=== PATIENT | male | born 1980 | race African-American/Black ===

== ENCOUNTER 2019-02-20 23:42 | Observation (INO) ==
[2019-02-21] MEDS ORDERED: SODIUM CHLORIDE 0.9% 1000ML 1,000 ML IV SCH (00:15)
[2019-02-21 00:33] LABS: Hematocrit (blood only) 45.9 % (42-52); Hemoglobin 16.4 g/dL (14.0-18.0); Mean Corpuscular Hemoglobin 33.9 pg (25-34); Mean Corpuscular Hgb Conc 35.7 g/dL (32-36); Mean Corpuscular Volume 94.8 fL (80-100); Mean Platelet Volume 10.1 fL (7.4-10.4); Platelet Count 225 K/uL (130-400); RDW Standard Deviation 48.7 fL (36.4-46.3); Red Blood Count 4.84 M/uL (4.7-6.1); White Blood Count 12.14 K/uL (4.8-10.8)
[2019-02-21 00:45] LABS: Partial Thromboplastin Ratio 1.1; Partial Thromboplastin Time 29.1 Seconds (21.0-31.0); Prothrombin Time 9.9 Seconds (9.0-12.0)
[2019-02-21 00:52] LABS: BUN Creatinine Ratio 12.9 (10-20); Calcium 9.4 mg/dl (8.5-10.1); Creatinine Clr Calc Pharmacy 105.1 ml/min; Est GFR (African American) 93.7; Est GFR (Non-African American) 80.9; Magnesium 2.2 mg/dl (1.8-2.4)
[2019-02-21 00:54] LABS: Basophils # (auto) 0.02 K/uL (0-0.2); Basophils % (auto) 0.2 %; Eosinophils # (auto) 0.16 K/uL (0-0.5); Eosinophils % (auto) 1.3 %; Immature Granulocytes # (auto) 0.02 K/uL (0.00-0.02); Immature Granulocytes % (auto) 0.2 %; Lymphocytes # (auto) 5.05 K/uL (1.2-3.4); Lymphocytes % (auto) 41.6 %; Monocytes # (auto) 0.93 K/uL (0.11-0.59); Monocytes % (auto) 7.7 %; Neutrophils # (auto) 5.96 K/uL (1.4-6.5); RBC Morphology Unremarkable
[2019-02-21 00:55] LABS: Albumin Globulin Ratio 0.9 (0.9-2); Bilirubin,Total 0.2 mg/dl (0.2-1); Globulin 4.3 gm/dl (2.5-4.0); Total Protein 8.3 gm/dl (6.4-8.2)
[2019-02-21] MEDS ORDERED: fentaNYL citrate 100 MCG/2 ML VIAL ONE (01:16)
[2019-02-21] MEDS ORDERED: PROPOFOL IV EMULSION 10 MG/ML 20 ML VIAL IV ONE (01:16)
[2019-02-21] MEDS ORDERED: LIDOCAINE HCL 2% 2 ML VIAL/AMP(20MG/ML) INFIL ONE (01:16)
--- NOTE | 2019-02-21 01:23 | History & Physical Report ---
Date of Service February 21, 2019 Assessment & Plan (1) Penile trauma: Penile injury with concern for penile fracture and high suspicion for urethral injury with blood at the meatus. Discussed need for urgent exploration and repair. Risks and benefits discussed at length for procedure. These include bleeding, infection, injury to surrounding tissues or organs, and risks associated with anesthesia. Patient states understanding and agrees to proceed. Will sign consent. 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 Understands and wishes to proceed with Penile exploration and cystoscopy. Present on Admission?: Yes (2) Urethral trauma: As above. Present on Admission?: Yes History of Present Illness Primary Care Provider: NO PCP Patient with sudden onset of severe pain and blood per penis after injury during intercourse. Severe swelling and discomfort up to groin and pelvis with immediate swelling. Unsure if completely lost erection. Had large amount of blood in condom. Seen in ER. Urology consult due to concern of trauma. High suspicion of urethral injury with penile fracture. Allergies Allergy/AdvReac Type Severity Reaction Status Date / Time No Known Allergies Allergy Verified 02/21/19 00:12 Home Medications Home Medications Medication Instructions Recorded Confirmed Type atorvastatin 0 mg PO DAILY 02/21/19 02/21/19 History lisinopril 0 mg PO DAILY 02/21/19 02/21/19 History Past Med/Surg History Medical History No chronic problems Family History Other No significant family history Social History Preferred Language: Estonian Feels Safe at Home: Yes Smoking Status: Current every day smoker Review of Systems All systems reviewed & are unremarkable except as noted in HPI & below Physical Exam Physical Exam: General: Alert and oriented x 3 in no acute distress. Patient is well nourished and well kept. HEENT: Normocephalic Atraumatic. Inspection normal. Cranial Nerves 2-12 Grossly intact. Nares are clear. Neck is supple. Normal inspection of face. Normal inspection of neck. Neurologic: No deficits on inspection. Baseline for motor function and sensory. Psychologic: Normal affect. Respiratory: Nonlabored. No use of accessory muscles. No tachypnea or dyspnea. Cardiovascular: No tachycardia Skin: [place] and Dry. No rashes or visible lesions. Extremities: Moving without issues. No motor deficits on inspection Lymphatics: No edema Abdomen: Soft Non-distended. No acites. No rebound or guarding. Genitourinary: Large swelling/hematoma at base ventral penis with edema tracking up along ventral penis and blood at meatus. Results & Data Vital Signs (Past 12 Hours) Vital Signs Temp Pulse Pulse Resp BP BP Pulse Ox 02/21/19 01:08 69 16 140/99 99 02/21/19 00:56 69 16 143/118 H 98 02/21/19 00:43 98 02/20/19 23:50 36.6 C 100 H 20 162/97 H 96
--- NOTE | 2019-02-21 01:24 | Anesthesiology Consultation ---
Date of Service February 21, 2019 Assessment & Plan (1) Encounter for pre-operative examination: Chart Review Chart Review: Acceptable Risk for Surgery Consults Requested none ASA [id number] Proposed Anesthesia Anesthesia Type: General Risk / Benefits Reviewed With: PT / POA / Parent / Guardian, Accepts Plan and Informed Consent Obtained History Surgery Operation Date: 02/21/19 01:00 Proposed Procedures p Penile Exploration - Artie Bose II, DO Height/Weight Height: 5 ft 9 in Weight: 107.8 kg Allergies Allergy/AdvReac Type Severity Reaction Status Date / Time No Known Allergies Allergy Verified 02/21/19 00:12 Medications Home Medications Medication Instructions Recorded Confirmed Last Taken atorvastatin 0 mg PO DAILY 02/21/19 02/21/19 02/20/19 lisinopril 0 mg PO DAILY 02/21/19 02/21/19 02/20/19 Active Medications Generic Name Dose Route Start Last Admin Trade Name Freq PRN Reason Stop Dose Admin Sodium Chloride 1,000 mls @ 125 mls/hr 02/21/19 00:15 02/21/19 01:14 Nss 1000ml IV 02/21/19 08:14 125 mls/hr .Q8H FAITH Administration NPO Date Last Intake of Fluids: 02/20/19 Time Last Intake of Fluids: 22:00 Last Intake of Fluids Comment: [place] Date Last Intake of Solids: 02/20/19 Time Last Intake of Solids: 20:00 Past Medical History Medical History Glaucoma HTN (hypertension) Hyperlipidemia No chronic problems Obesity Exercise / Class Metabolic Activity II 4-5 Yardwork/Stairs/Walk up hill Past Family History Family History Other No significant family history Past Anesthesia History No Hx of Anesthesia Complications and No Family Hx of Anesthesia Complications History of PONV No Hx of PONV and No Hx of Motion Sickness Social History Smoking Status: Current every day smoker Physical Exam Vital Signs Last Vital Signs Temp 97.9 F 02/20/19 23:50 Pulse 69 02/21/19 01:08 Resp 16 02/21/19 01:08 BP 140/99 02/21/19 01:08 Pulse Ox 99 02/21/19 01:08 ENMT Mouth: no dentition abnormality Thyromental Distance: > or= 3.5 Finger Breadths Mallampati Class: II Neck normal visual inspection Respiratory normal respiratory effort Auscultation: lungs clear to auscultation bilaterally Cardiovascular Rate/Rhythm: regular rate and regular rhythm Testing Laboratory Results 02/21/19 00:13 02/21/19 00:13 PT 9.9 Seconds (9.0-12.0) 02/21/19 00:13 INR 1.0 (0.9-1.1) 02/21/19 00:13 APTT 29.1 Seconds (21.0-31.0) 02/21/19 00:13 Electrocardiogram Date: 02/21/19 Normal sinus rhythm, rate 96 bpm Nonspecific T wave abnormality Abnormal ECG No previous ECGs available
[2019-02-21] MEDS ORDERED: ONDANSETRON INJ 2 MG/ML 2 ML VIAL IV PRN ×2 (01:33→04:37)
[2019-02-21] MEDS ORDERED: ePHEDrine sulfate 50 MG/ML AMP IV PRN (01:33)
[2019-02-21] MEDS ORDERED: fentaNYL citrate 100 MCG/2 ML VIAL IV PRN (01:33)
[2019-02-21] MEDS ORDERED: ATROPINE SULFATE 0.1 MG/ML 10ML SYR IV PRN (01:33)
[2019-02-21] MEDS ORDERED: LIDOCAINE/EPINEPHRINE 1% 20 ML VIAL ONE (01:45)
[2019-02-21] MEDS ORDERED: BUPIVACAINE 0.25% 30 ML VIAL ONE (01:45)
[2019-02-21] MEDS ORDERED: ROCURONIUM BROMIDE 10 MG/ML 5 ML VIAL ONE (02:12)
[2019-02-21] MEDS ORDERED: CEFAZOLIN 250 MG/ML 1 GM VIAL ONE (02:12)
[2019-02-21] MEDS ORDERED: SUCCINYLCHOLINE CHLORIDE 20 MG/ML 10 ML VIAL ONE (02:12)
[2019-02-21] MEDS ORDERED: PHENYLEPHRINE 100MCG/ML 5ML SYR ONE (02:21)
--- NOTE | 2019-02-21 03:48 | Anesthesiology Progress Note ---
Date of Service February 21, 2019 Anesthesia Post Procedure Vital Signs Vital Signs: Temp Pulse Pulse Resp BP BP Pulse Ox 02/21/19 01:08 69 16 140/99 99 02/21/19 00:56 69 16 143/118 H 98 02/21/19 00:43 98 02/20/19 23:50 97.9 F 100 H 20 162/97 H 96 Pain Intensity Penis: Pain Intensity: 6 Transfer of Care Handoff Completed per policy Notes Mental Status: alert / awake / arousable and participated in evaluation Patient Amnestic to Procedure: Yes Nausea / Vomiting: adequately controlled Pain: adequately controlled Airway Patency, RR, SpO2: stable & adequate BP & HR: stable & adequate Hydration State: stable & adequate Anesthetic Complications: no major complications apparent and Pt Satisfied with anesthetic care
--- NOTE | 2019-02-21 03:51 | Operative Report ---
Post Operative Report Pre & Post Diagnosis Operation Date: 02/21/19 01:00 Pre-Op Diagnosis: Penile trauma Post-Op Diagnosis: Penile fracture with urethral injury Procedure Operation Date: 02/21/19 01:00 Actual Procedures p Cytoscopy with difficult canales placement; Penile Exploration with repair of urethral and corpora spongiosum - Artie Bose II, DO Surgeon Artie Bose, II, DO Fly Worker None Estimated Blood Loss 10 Findings Consistent with Post-Op Diagnosis Urethral injury at mid urethra with large penile hematoma. Wire and canales passed through cystoscope. Exploration found rupture of spongiosum and 1.1 cm injury of the urethra. Specimens None Drains 18 Fr Washoe tip Anesthesia Type General Complications none Disposition Disposition: Recovery Room Indications Penile trauma with blood at meatus. Urgent/Emergent exploration with presumed urethral injury. Risks and benefits discussed at length. Description of Procedure Patient was consented and brought back to the operating room. Patient was placed under anesthesia in the supine position. Patient was prepped and draped in the regular sterile fashion. A time out was completed. Correct patient identified. A penile block was completed at the base of the penis. A flexible cystoscopy was placed into the urethra. It was slowly advanced. A large injury was discovered in the mid pendulous urethra. The lumen was visable and with a wire the scope was able to advaned past. No further injury was discovered proximal to this area. The wire was left in place and an 18 Fr Washoe tip was placed. This was set to drainage and then clamped. The foreskin was assessed and a marking pen was used to anh the area. A scalpel was used to make the incision along the circumcision scar. Care was taken to monitor the major important landmarks. A large hematoma was noted ventral with minimal blood or hematoma laterally and almost no blood tracking dorsally. The penile skin was degloved to expose the tissues. A large amount of hematoma was encountered in the mid shaft ventrally. This was flushed away. A large defect was found in the corpus spongiosum with exposed canales catheter. The area was flushed. The mucosal edges were approximated with a 4-0 PDS. A second layer was then sutured with the 4-0 PDS. The spongiosum defect was then closed with a 3-0 PDS suture. Tissue over top of the closure was then used to cover the area utilizing a 3-0 Vicryl suture. The rest of the ventral penis was inspected. no further areas of concern or notable injury. Both corpus cavernosum bodies were noted to be clear of any injury. Some smaller subcutanous veins were cauterized. No further bleeding was noted. The hematoma appeared to be caused by the large corpus spongiosum injury. The tissue below the skin was then approximated using a 3-0 vicryl. The skin edges were assessed. The 6 and 12 oclock positions were then sutured with interrupted horizontal mattress 2-0 vicryl suture. The skin edges were then approximated circumferentially. The ventral portion was closed in an interrupted fashion with the dorsal and lateral skin closed with a running stitch. The area was assessed and good approximation was noted. No bleeding or other issues. No masses or other areas of concern. Glue was placed on the incision. This was then bandaged and a layered wrap placed. A elastic bandage was then wrapped over top to allow some light compression. The patient was cleaned, aroused from anesthesia, and transferred to the pacu in stable condition having tolerated the procedure well with no complications. I was present and participated in all aspects of the procedure. The patient will maintain the catheter likely for multiple weeks to allow healing of the area. Will monitor hematoma and follow on floor as an observation patient. I attest to the content of the Intraoperative Record and any orders documented therein. Any exceptions are noted below.
--- NOTE | 2019-02-21 03:52 | Emergency Department Note ---
Entered by Jordon Gomez acting as a scribe for History of Present Illness General Chief complaint: Penile Discharge Stated complaint: PENIS DISCHARGE Time Seen by Provider: 02/20/19 23:58 Source: patient History of Present Illness Onset (ago): hour(s) 1 Location: genitals (penis) Pain Consistency: + constant Maximum Pain Intensity: 6 Quality: + other (bleeding) Associated symptoms: + other (Positive for penile swelling and penile pain.) The patient is a 38 year old male who presents to the emergency department with complaints of constant penile bleeding beginning an hour ago. The patient states that he was having sex an hour ago. He notes that while he was having sex, he jammed his erect penis, causing it to bend. He reports that he then filled the condom up with blood. The patient states that his penis is now swollen and he notes that he is having pain. He notes that he took male enhancing products earlier today. 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 and A total of 10 systems reviewed and were otherwise negative Physical Exam Vital Signs Vital Signs - 24 hr 02/20/19 23:50 02/21/19 00:43 02/21/19 00:56 Temperature 36.6 C Temperature Source Oral Sepsis Recent Fever Within 48 Hours No Sepsis New/Unexplained Change in Mental Status No Sepsis Action Taken by Nursing No Action Required Pulse Rate 100 H Pulse Rate [Apical] Pulse Rate [Right Finger] 69 Pulse Rhythm [Right Finger] Regular Pulse Strength [Right Finger] Normal Respiratory Rate 20 16 Respiratory Effort / Characteristics Non-Labored Respiratory Depth Normal Normal Respiratory Pattern Blood Pressure 162/97 H Blood Pressure [Right Arm] 143/118 H Blood Pressure Mean 118 Blood Pressure Mean [Right Arm] 126 Blood Pressure Position [Right Arm] Lying Pulse Oximetry 96 98 98 Oxygen Delivery Method Room Air Room Air Oxygen Flow Rate 02/21/19 01:08 02/21/19 03:38 02/21/19 03:50 Temperature 36.3 C L Temperature Source Oral Sepsis Recent Fever Within 48 Hours Sepsis New/Unexplained Change in Mental Status Sepsis Action Taken by Nursing Pulse Rate 69 Pulse Rate [Apical] 98 H 96 H Pulse Rate [Right Finger] Pulse Rhythm [Right Finger] Pulse Strength [Right Finger] Respiratory Rate 16 18 20 Respiratory Effort / Characteristics Non-Labored Respiratory Depth Normal Respiratory Pattern Regular Blood Pressure 140/99 Blood Pressure [Right Arm] 130/98 145/93 H Blood Pressure Mean Blood Pressure Mean [Right Arm] 108 110 Blood Pressure Position [Right Arm] Lying Pulse Oximetry 99 91 91 Oxygen Delivery Method Room Air Room Air Nasal Cannula Oxygen Flow Rate 2 02/21/19 04:00 02/21/19 04:10 Temperature Temperature Source Sepsis Recent Fever Within 48 Hours Sepsis New/Unexplained Change in Mental Status Sepsis Action Taken by Nursing Pulse Rate Pulse Rate [Apical] 92 H 94 H Pulse Rate [Right Finger] Pulse Rhythm [Right Finger] Pulse Strength [Right Finger] Respiratory Rate 18 18 Respiratory Effort / Characteristics Non-Labored Spontaneous Non-Labored Spontaneous Respiratory Depth Normal Normal Respiratory Pattern Regular Regular Blood Pressure Blood Pressure [Right Arm] 126/97 129/91 Blood Pressure Mean Blood Pressure Mean [Right Arm] 106 103 Blood Pressure Position [Right Arm] Pulse Oximetry 94 94 Oxygen Delivery Method Nasal Cannula Nasal Cannula Oxygen Flow Rate 2 2 Vital signs reviewed. General: Well-appearing male, in no significant distress. HEENT: No scleral icterus, PERRLA, neck supple. Atraumatic. Cardiovascular: Regular rate and rhythm, no extra sounds. Pulmonary: Clear to auscultation bilaterally, normal work of breathing. Abdomen: Soft, nontender, nondistended, positive bowel sounds. : Circumcised, swollen shaft/base of penis with minimal dark blood at the urethral meatus, hematoma visualized with positive tenderness along the shaft. Musculoskeletal: Atraumatic, no peripheral edema. Neurologic: Patient awake alert and oriented x 3 Skin: Warm, dry, no rash Course 0000: The patient was evaluated in room A3. A complete history and physical exam was performed. 0029: Upon reevaluation, the patient is stable. I discussed the findings and the treatment plan with the patient. He expresses agreement and understanding. I spoke with Dr. Juice Vital UrologDHRUV molina. The patient will be taken to the OR for further management. Consultations Consultation #1: I spoke with DHRUV Tucker. The patient will be taken to the OR for further management. Time: 00:29 Administered Medications Oxycodone HCl (Roxicodone Immediate Rel) 5 mg PO Q4H PRN PRN Reason: MODERATE Pain (Scale 4,5,6) Stop: 03/07/19 04:36 Last Admin: 02/21/19 05:12 Dose: 5 mg Documented by: [id number] Discontinued Medications Bupivacaine HCl (Sensorcaine 0.25% Inj) Confirm Administered Dose 30 ml .ROUTE .STK-MED ONE Stop: 02/21/19 01:46 Last Admin: 02/21/19 03:17 Dose: 20 ml Documented by: [id number] Sodium Chloride (Nss 1000ml) 1,000 mls @ 125 mls/hr IV .Q8H FAITH Stop: 02/21/19 08:14 Last Infusion: 02/21/19 05:02 Dose: 0 mls/hr Documented by: [id number] Admin: 02/21/19 01:14 Dose: 125 mls/hr Documented by: [id number] Lidocaine/Epinephrine (Xylocaine/Epinephrine 1%) Confirm Administered Dose 20 ml .ROUTE .STK-MED ONE Stop: 02/21/19 01:46 Last Admin: 02/21/19 03:17 Dose: 20 ml Documented by: [id number] Medical Decision Making Differential Diagnosis Differential diagnosis includes: fractured penis, urethral laceration, testicular trauma, hematoma, and STI. Medical Records Attestation: I reviewed the patient's medical records. Home Medications Current Medication List: was personally reviewed by me Laboratory Data Attestation: I reviewed the patient's lab results. Result diagrams: 02/21/19 00:13 02/21/19 00:13 Lab Results 02/21/19 02/21/19 02/21/19 Range/Units 00:13 00:13 00:13 WBC 12.14 H (4.8-10.8) K/uL RBC 4.84 (4.7-6.1) M/uL Hgb 16.4 (14.0-18.0) g/dL Hct 45.9 (42-52) % MCV 94.8 (80-100) fL MCH 33.9 (25-34) pg MCHC 35.7 (32-36) g/dL RDW Std Deviation 48.7 H (36.4-46.3) fL RDW Coeff of Mike 14.0 (11.5-14.5) % Plt Count 225 (130-400) K/uL MPV 10.1 (7.4-10.4) fL Immature Gran % (Auto) 0.2 % Neut % (Auto) 49.0 % Lymph % (Auto) 41.6 % [place] % (Auto) 7.7 % Eos % (Auto) 1.3 % Baso % (Auto) 0.2 % Immature Gran # (Auto) 0.02 (0.00-0.02) K/uL Neut # (Auto) 5.96 (1.4-6.5) K/uL Lymph # (Auto) 5.05 H (1.2-3.4) K/uL [place] # (Auto) 0.93 H (0.11-0.59) K/uL Eos # (Auto) 0.16 (0-0.5) K/uL Baso # (Auto) 0.02 (0-0.2) K/uL RBC Morphology Unremarkable PT 9.9 (9.0-12.0) Seconds INR 1.0 (0.9-1.1) APTT 29.1 (21.0-31.0) Seconds PTT Ratio 1.1 Sodium 140 (136-145) mmol/L Potassium 4.0 (3.5-5.1) mmol/L Chloride 105 (98-107) mmol/L Carbon Dioxide 27 (21-32) mmol/L Anion Gap 8.0 (3-11) BUN 15 (7-18) mg/dl Creatinine 1.13 (0.6-1.4) mg/dl Est Cr Clr Drug Dosing 105.1 ml/min Est GFR ( Amer) 93.7 Est GFR (Non-Af Amer) 80.9 BUN/Creatinine Ratio 12.9 (10-20) Glucose 104 H (70-99) mg/dl Calcium 9.4 (8.5-10.1) mg/dl Magnesium 2.2 (1.8-2.4) mg/dl Total Bilirubin 0.2 (0.2-1) mg/dl AST 31 (15-37) U/L ALT 36 (12-78) U/L Alkaline Phosphatase 70 (45-117) U/L Total Protein 8.3 H (6.4-8.2) gm/dl Albumin 4.0 (3.4-5.0) gm/dl Globulin 4.3 H (2.5-4.0) gm/dl Albumin/Globulin Ratio 0.9 (0.9-2) ECG Data Attestation: I personally reviewed and interpreted this ECG as follows: Indication: chest pain Rate (beats per minute): 96 Rhythm: normal sinus Findings: no PAC, no PVC and no acute ischemic change Additional Comments: Nonspecific ST changes in inferior and lateral leads. Blood Pressure Blood Pressure Findings: Elevated blood pressure Blood Pressure Disposition: elevated BP felt to be situational MDM Narrative This patient was evaluated and appeared to be in no significant distress. Physical examination reveals a swollen penile shaft that is tender. There is dark blood at the urethral meatus. Scrotum appears to be fairly unaffected. There is no tenderness to palpation of the testicles. IV access was obtained and laboratory work was drawn. Patient was started on IV hydration. He was advised to remain n.p.o. I did speak with urology, Dr. Bose, who evaluated the patient in the emergency department for further management. Patient was taken to the operating room for definitive care. Impression & Plan Fracture of erect penis Discharge Plan Visit Data *Final* Discharge Date/Time: 02/21/19 01:08 Chief Complaint: Penile Discharge Stated Complaint: PENIS DISCHARGE ED Provider: Cecelia Soliz Discharge Problem: Fracture of erect penis Patient Disposition: Admitted As Inpatient Discharge Instructions Interventions: ED Discharge Assessment Last Done: 02/21/19 01:08 The scribe's documentation has been prepared under my direction and personally reviewed by me in its entirety. I confirm that the note above accurately reflects all work, treatment, procedures, and medical decision making performed by me.
[2019-02-21] MEDS ORDERED: MoRPHine SULFATE 2 MG/ML CARP IV PRN (04:37)
[2019-02-21] MEDS ORDERED: ACETAMINOPHEN 325 MG TAB PO PRN (04:37)
[2019-02-21] MEDS: OXYCODONE HCL IR 5 MG TAB (IMMEDIATE RELEASE) PO PRN ×3 (05:12→16:31)
[2019-02-21] MEDS: D5W AND 1/2NSS + 20MEQ KCL 20 MEQ/1,000 ML BAG IV SCH ×2 (06:03→20:37)
[2019-02-21 06:24] LABS: Appearance Urine Clear (Clear); Bacteria Urine Automated Negative (Negative); Bilirubin Urine Negative (Negative); Blood Urine 2+ (Negative); Color Urine Yellow; Epithelial Cell Urine Auto >30 /lpf (0-5); Glucose Urine UA Negative (Negative); Ketones Urine Negative (Negative); Leukocyte Esterase Urine Negative (Negative); Nitrite Urine Negative (Negative); Protein Urine Negative (Negative); Urobilinogen Urine Negative (Negative)
[2019-02-21 06:32] LABS: Mucus Urine Present (None Prsent)
[2019-02-21 06:34] LABS: Renal Epithelial Cells Urine 0-5 /lpf (0-5)
--- NOTE | 2019-02-21 08:33 | Urology Progress Note ---
Date of Service February 21, 2019 Assessment & Plan (1) Urethral trauma: 38yo M POD #0 s/p cysto, penile exploration and repair of urethra and corpora spongiosum for urethral injury at midurethra with large penile hematoma Pt progressing as expected. Plan to add ditropan for bladder spasms, pyridium for bladder pain. Plan to wean O2. Encourage use of ice, 20 min on, 20 min off. Coordinate of care to follow will be challenging. 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 I will ask case management to help coordinate. He can either leave with a ride once pain controlled, or he must wait until off narcotic pain control x8 hours prior to driving home. Recommend resting for 1 week before returning to work. Okay to discharge home once coordinated. Will be in touch with case silke Subjective 38yo M POD #0 s/p cysto, penile exploration and repair of urethra and corpora spongiosum for urethral injury at midurethra with large penile hematoma Pt is approx 5 hours post op, progressing as expected. Pt is having some pain issues, otherwise doing okay. Stating he is hungry. student ministry pastor at bedside to change ice bag. compression dressing and canales catheter intact. Draining clear yellow. Pt denies any chest pain,shortness of breath. Denies n/v/f/c. Review of Systems Review of Systems: All systems reviewed & are unremarkable except as noted in HPI & below Physical Exam Constitutional: no acute distress and not ill appearing Eyes: no nystagmus ENMT: Ears: no hearing impairment Neck: trachea midline Respiratory: no respiratory distress and no cough Cardiovascular: Vessels: no JVD Chest (Breasts): Chest: normal inspection of chest Gastrointestinal (Abdomen): Inspection/Auscultation: abdomen not distended and no abdominal edema Percussion/Palpation: abdomen soft; abdomen nontender Musculoskeletal: Head/Neck/Chest: normocephalic and head atraumatic Skin: no rashes, warm and dry Neurologic: awake; not confused and not obtunded Psychiatric: Orientation: alert and oriented x 3 Eye Contact: good eye contact Affect: no depressed affect Genitourinary: no CVA tenderness penile dressing intact. canales draining clear yellow. Lymphatic: no lymphadenopathy and no lymphedema Results & Data Vital Signs (Past 12 Hours) Vital Signs Temp Pulse Pulse Pulse Pulse Resp BP 02/21/19 07:48 36.5 C 86 18 02/21/19 06:34 36.9 C 85 16 02/21/19 05:50 36.5 C 88 16 02/21/19 05:20 36.6 C 87 14 02/21/19 04:50 36.4 C L 84 14 02/21/19 04:42 36.4 C L 91 H 18 02/21/19 04:37 02/21/19 04:10 94 H 18 02/21/19 04:00 92 H 18 02/21/19 03:50 96 H 20 02/21/19 03:38 36.3 C L 98 H 18 02/21/19 01:08 69 16 140/99 02/21/19 00:56 69 16 02/21/19 00:43 02/20/19 23:50 36.6 C 100 H 20 162/97 H BP Pulse Ox Pulse Ox 02/21/19 07:48 115/83 96 02/21/19 06:34 121/81 95 02/21/19 05:50 121/75 97 02/21/19 05:20 121/79 97 02/21/19 04:50 123/79 94 02/21/19 04:42 141/89 H 95 02/21/19 04:37 96 02/21/19 04:10 129/91 94 02/21/19 04:00 126/97 94 02/21/19 03:50 145/93 H 91 02/21/19 03:38 130/98 91 02/21/19 01:08 99 02/21/19 00:56 143/118 H 98 02/21/19 00:43 98 02/20/19 23:50 96
[2019-02-21] MEDS: OXYBUTYNIN CHLORIDE 5 MG TAB PO SCH ×2 (09:28→21:20)
[2019-02-21] MEDS: DOCUSATE SODIUM 100 MG CAP PO SCH ×2 (09:28→21:20)
[2019-02-21] MEDS ORDERED: PHENAZOPYRIDINE HCL 200 MG TAB PO PRN (09:51)
[2019-02-21] MEDS ORDERED: TAMSULOSIN HCL 0.4 MG CAP PO ONE (11:15)
[2019-02-21] MEDS: ACETAMINOPHEN 65 ML IV SCH ×2 (13:13→22:19)
[2019-02-21] MEDS: CEFAZOLIN 2000MG 2,000 MG/15 ML SYR IV SCH ×2 (14:03→20:38)
[2019-02-21] MEDS ORDERED: NICOTINE 21 MG/24 HR TDSY TD SCH (20:35)
[2019-02-21] MEDS ORDERED: OXYBUTYNIN CHLORIDE 5 MG TAB PO SCH (21:00)
[2019-02-21] MEDS: KETOROLAC TROMETHAMINE 15 MG/ML VIAL IV PRN (21:10)
[2019-02-21] MEDS: cephALEXin 500 MG CAP PO SCH (21:20)
[2019-02-22] MEDS: ACETAMINOPHEN 65 ML IV SCH (05:34)
[2019-02-22] MEDS: KETOROLAC TROMETHAMINE 15 MG/ML VIAL IV PRN (05:42)
[2019-02-22] MEDS: DOCUSATE SODIUM 100 MG CAP PO SCH (09:15)
[2019-02-22] MEDS: OXYBUTYNIN CHLORIDE 5 MG TAB PO SCH (09:15)
[2019-02-22] MEDS: cephALEXin 500 MG CAP PO SCH (09:15)
--- NOTE | 2019-02-22 10:30 | Urology Progress Note ---
Date of Service February 22, 2019 Assessment & Plan (1) Fracture of erect penis: Corporal rupture/fracture - d/c home today - return for voiding trial - discussed appropriate precautions Subjective improving appropriately pain better anxious to go home tolerating catheter Review of Systems Review of Systems: All systems reviewed & are unremarkable except as noted in HPI & below Physical Exam Physical Exam: penis with dressing in place modest swelling of the glans scrotal edema urine clear Results & Data Vital Signs (Past 12 Hours) Vital Signs Temp Pulse Resp BP Pulse Ox 02/22/19 07:21 36.9 C 88 17 148/92 H 92 02/22/19 03:13 36.8 C 88 16 127/80 92 02/21/19 23:04 37.0 C 95 H 16 149/83 H 91 PG Care Time/CCT Total # of Minutes Spent Total Time Spent with Patient: Total time spent is greater than 50% in coordination of care (as documented) at patient's floor/unit and/or counseling patient:
--- NOTE | 2019-02-28 12:00 | Discharge Summary ---
Date of Service February 28, 2019 Admission HPI Per Admitting Provider Patient with sudden onset of severe pain and blood per penis after injury during intercourse. Severe swelling and discomfort up to groin and pelvis with immediate swelling. Unsure if completely lost erection. Had large amount of blood in condom. Seen in ER. Urology consult due to concern of trauma. High suspicion of urethral injury with penile fracture. Admission Exam Per Admitting Provider * See Admission H&P Principal Diagnosis Penile Fracture Discharge Exam Constitutional no acute distress and not ill appearing Eyes no nystagmus ENMT Ears: no hearing impairment Mouth: no dentition abnormality Mallampati Class: II Neck normal visual inspection and trachea midline Respiratory normal respiratory effort; no respiratory distress and no cough Auscultation: lungs clear to auscultation bilaterally Cardiovascular Rate/Rhythm: regular rate and regular rhythm Vessels: no JVD Chest (Breasts) Chest: normal inspection of chest Gastrointestinal (Abdomen) Inspection/Auscultation: abdomen not distended and no abdominal edema Percussion/Palpation: abdomen soft; abdomen nontender Musculoskeletal Head/Neck/Chest: normocephalic and head atraumatic Skin no rashes, warm and dry Neurologic awake; not confused and not obtunded Psychiatric Orientation: alert and oriented x 3 Eye Contact: good eye contact Affect: no depressed affect Genitourinary no CVA tenderness Lymphatic no lymphadenopathy and no lymphedema Discharge Data Allergies Allergy/AdvReac Type Severity Reaction Status Date / Time No Known Allergies Allergy Verified 02/21/19 00:12 Procedures Performed Operation Date: 02/21/19 01:00 Actual Procedures p Penile Prosthesis - Artie Bose II, DO s Cytoscopy with difficult canales placement; - Artie Bose II, DO p Penile Exploration with repair of urethral and spongiosum - Artie Bose II, DO Hospital Course (1) Fracture of erect penis: Corporal rupture/fracture - d/c home today - return for voiding trial - discussed appropriate precautions Total Time Total Time Spent Total Time Spent (In Minutes): 15 Total Time Includes: Examination of the Patient, Discharge Planning, Medication Reconciliation, Communication With Other Providers and Other Discharge Plan Discharge Items Patient Disposition: Home - Self-Care Reason For Visit: PENILE FRACTURE Discharge Diagnosis: penile fracture Condition on Discharge: Good Activity: As commented below Activity Comment: okay to shower in 2 days. avoid tub baths/soaking Lifting: No more than 10 pounds Sexual Activity: Wait until after follow-up appointment Exercise/Sports: Wait until after follow-up appointment Driving/Machine Use: please do not drive while taking prescription pain control Non-emergency contact: Urologist Call non-emergency contact if: your symptoms worsen, your pain is concerning for you, your temperature is above 101, your wound has increased redness, your wound has increased drainage and your wound pain has increased Follow-up/Referrals: Artie Bose II, DO [Physician] - 03/12/19 2:00 pm (catheter removal to follow) PCP,NO [Primary Care Provider] - Diet: Regular Addtl Attending Provider Instructions: Please take all medications as prescribed and keep all follow-ups as scheduled. Please call our office at [phone] with any questions, concerns or need to reschedule appointments for any reason. We are happy to assist you. Avoid ibuprofen for 2-3 days, then okay to add to pain regimen. You can unwrap bandage and reuse for light pressure as needed. If any dressing underneath main bandage, it may come off tomorrow. Your incision is glued, it will fall off naturally in 2-3 weeks. Do not pick at surgical glue. Catheter must stay in for 3 weeks, this is VERY important. We have an appt scheduled for you in [place] on Mar 12 to have this removed. If you cannot make this appt you must go to an ER in your area on or around Mar 12 to have catheter removed. Cephelaxin is your antibiotic, you must take this every 12 hours for 5 days. Tamsulosin is to help the flow of urine, take this once at night each day. Oxybutynin is for bladder spasms, you can take this twice a day as needed. Pyridium is for burning, it can turn your urine orange. You can take this as needed. Percocet is for pain. Do not mix with alcohol, you cannot drive while taking this medicine. It is very important to ice the area, 20 min on, 20 min off. What to expect after your surgery: You will probably see a crust of blood or yellowish coating around your sutures. Do not remove scabs. Its OK if they fall off on their own. Your penis will swell. It may bleed a little around the incision. The penis may become red or [id number]. You may experience pain with urination for the first few days. Take pain medicine if you feel you need it. Healing takes about 2-3 weeks, and your stitches will dissolve on their own, unless you have been informed otherwise. Home Care: Unless directed otherwise, drink 6 to 8 glasses of water a day (enough to keep your urine light colored). This will also help keep a healthy flow of urine. We recommend using a stool softener for the first two weeks to avoid cons tipation. Canales Catheter care: Keep the catheter well secured with either a leg back or leg strap with large bag. Empty your bag when it's about half full. You may notice some blood in the bag. This is normal after surgery and while the catheter is in place. Use mild soap (such as Dove or Dial) and water to wash the catheter and the head of your penis daily, or more frequently if needed. Return to your normal diet, we encourage good protein intake to promote healing. You may shower as normal. Please avoid tub baths or soaking until catheter removed and incisions well healed. Wearing sweat pants while you have the catheter is recommended, they will be more comfortable. When to call [facility] at [phone] (or report to the ED if it is after hours): Fever of 101F or higher Discharge that is heavy, a greenish color, or lasts more than a week Bleeding that isnt controlled by applying gentle pressure Inability to urinate Pending Studies at Discharge: No Stand-Alone Forms: My [facility], Opioid Pain Management Medications and DC Order Prescriptions: New oxycodone-acetaminophen [Percocet] 7.5-325 mg tablet 1 tab PO TID Qty: 20 RF: 0 phenazopyridine [Pyridium] 200 mg tablet 200 mg PO TID Qty: 30 RF: 0 oxybutynin chloride 5 mg tablet 5 mg PO BID PRN (Reason: bladder spasms) Qty: 60 RF: 0 tamsulosin 0.4 mg capsule 0.4 mg PO HS Qty: 60 RF: 0 Continued atorvastatin 20 mg Tablet PO DAILY RF: 0 lisinopril 5 mg Tablet PO DAILY RF: 0 Discharge Orders: Discharge Order (Routine); Ordered 02/22/19 Ordered By: Faraz T. Willem Admission Data Admit Date/Time: 02/21/19 04:34 Attending Provider: Artie Bose II Admit Provider: Artie Bose II Primary Care Provider: PCP,NO Other Interventions: Discharge Summary Assessment (RN) Last Done: 02/22/19 12:32 DC Date/Time DO NOT enter until pt leaves facility: 02/22/19 13:08
== END 2019-02-22 13:08 | disposition home or self-care (01) ==
LOC: ED 23:42 → 3W 02-21 01:08 → ASU 02-21 01:08